=== PATIENT | female | born 1980 | race Two or more races ===

== ENCOUNTER 2020-01-24 17:36 | Emergency (ER) | payer MEDICAID ==
[~2020-01-24] VITALS: Ht 157.5 cm; Wt 109.0 kg
[2020-01-24] MEDS ORDERED: KETOROLAC 30MG/ML VIAL IM ONE (20:30)
[2020-01-24] MEDS ORDERED: CYCLOBENZAPRINE 10MG TABLET PO ONE (20:30)
[2020-01-24 21:07] VITALS: BP 127/86
== END 2020-01-24 21:09 | disposition home or self-care (01) ==
LOC: ER 17:36
DX: S16.1XXA Strain of muscle, fascia and tendon at neck level, initial encounter (principal); S39.012A Strain of muscle, fascia and tendon of lower back, initial encounter; S20.211A Contusion of right front wall of thorax, initial encounter; S80.02XA Contusion of left knee, initial encounter; Z98.890 Other specified postprocedural states; Z98.51 Tubal ligation status; V48.5XXA Car driver injured in noncollision transport accident in traffic accident, initial encounter; Y93.89 Activity, other specified; Y92.89 Other specified places as the place of occurrence of the external cause; Y99.8 Other external cause status
CPT/HCPCS: 70450; 71101; 72125; 72131; 72170; 73030; 73562; 81025; 96372; 99285; J1885

== ENCOUNTER 2020-01-29 21:21 | Emergency (ER) | payer MEDICAID ==
[~2020-01-29] VITALS: Ht 157.5 cm; Wt 105.0 kg
[2020-01-29] MEDS ORDERED: MORPHINE SULFATE 4 MG/ML CPJ (NOT FOR IM USE) IV STA (23:48)
[2020-01-29] MEDS ORDERED: ONDANSETRON HCL 4MG/2ML INJ IV STA (23:48)
[2020-01-30 00:21] LABS: BASOPHILS % 0.7 % (0.0-2.0); EOSINOPHILS % 2.4 % (0.0-5.0); HEMATOCRIT. 34.3 % (36.0-48.0); HEMOGLOBIN. 12.2 g/dL (12.0-16.0); LYMPHOCYTES % 37.2 % (20.0-50.0); MEAN CORPUSCULAR HEMOGLOBIN 31.2 pg (28.0-32.0); MEAN CORPUSCULAR VOLUME 87.7 fL (81.0-99.0); MEAN PLATELET VOLUME 7.8 fl (7.4-10.4); MONOCYTES % 5.8 % (2.0-8.0); NEUTROPHILS % 53.9 % (40.0-76.0); PLATELET 268 x1000/uL (130-400); RED BLOOD CELL COUNT 3.91 mill/uL (4.2-5.4); RED CELL DISTRIBUTION WIDTH 13.3 % (11.6-14.6)
[2020-01-30 00:26] LABS: CHLORIDE 107 mEq/L (98-107)
[2020-01-30 02:09] VITALS: BP 129/68
== END 2020-01-30 02:23 | disposition home or self-care (01) ==
LOC: ER 21:21
DX: S06.0X9A Concussion with loss of consciousness of unspecified duration, initial encounter (principal); Z98.890 Other specified postprocedural states; V89.2XXA Person injured in unspecified motor-vehicle accident, traffic, initial encounter; Y93.89 Activity, other specified; Y92.89 Other specified places as the place of occurrence of the external cause; Y99.8 Other external cause status
CPT/HCPCS: 36415; 70450; 80053; 84484; 85025; 96374; 96375; 99284; J2270; J2405

== ENCOUNTER 2024-10-05 12:04 | Emergency (ER) | payer MEDICAID, OTHER ==
[~2024-10-05] VITALS: Ht 160 cm; Wt 82.0 kg
[2024-10-05 12:18] VITALS: O2SAT 100
[2024-10-05] MEDS: ACETAMINOPHEN 500MG TABLET PO ONE (13:37)
[2024-10-05] MEDS ORDERED: IBUP-2029 MT (15:00)
[2024-10-05 15:11] VITALS: BP 126/86; PULSE 73; RESP 18; TEMP 36.6; O2SAT 99
== END 2024-10-05 15:21 | disposition home or self-care (01) ==
LOC: ER 12:04
DX: M25.461 Effusion, right knee (principal); Z98.890 Other specified postprocedural states
CPT/HCPCS: 73560; 81025; 93971; 99284